=== PATIENT | male | born 1950 | race African-American/Black ===

== ENCOUNTER 2016-12-12 01:25 | Emergency (ER) | payer BC ==
--- NOTE | ~2016-12-12 | CR72 ---
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 [place], [place] [address] [id number] E MR#: [id number] Acc #: [id number] NAME: COCO BREWSTER : 1950 SEX: M STUDY DATE/TIME: 12/12/2016 1:13 UNIT: [facility] ROOM: STUDY DESCRIPTION: CR Chest Single View Portable Attending Physician: Abdiaziz Enriquez M.D. Ordering Physician: Chinedu Barrientos M.D. Primary Care Physician: Jann Lazo M.D. MEDICAL IMAGING REPORT This report is preliminary unless electronic signature is present EXAM Portable AP view of the chest COMPARISON CT chest dated July 02, 2016, 2 views of the chest on July 02, 2016. INDICATIONS 66-year-old male with chest pain for 2 hours. History of hypertension. FINDINGS No evidence of pneumothorax, pleural effusion or acute airspace disease. Cardiomediastinal silhouette is normal. Minimal multilevel thoracic spondylosis. IMPRESSION No acute radiographic abnormality. Dictated by... Daniel Calixto M.D. THIS IS AN ELECTRONICALLY VERIFIED REPORT Daniel Calixto M.D. at 12/12/2016 12:55 PM ESTHER/[place] TD: 12/12/2016 09:13 JOB #: [id number] MEDICAL IMAGING REPORT COPY
--- NOTE | ~2016-12-12 | EKG ---
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
[~2016-12-12 01:25] MED LIST: FLEXERIL10 MG PO; IBUPROFEN800 MG PO; MEDROL4 MG/DOSE- PO; VICODIN 5/1 TAB 5/50 PO; ZYRTEC PO
[2016-12-12 01:30] LABS: POC - CKMB 1.6 ng/mL (0.0-7.9); POC - TROPONIN <0.05 ng/mL (<=0.05)
[2016-12-12 02:03] LABS: EOSINOPHIL# 0.1 X10e3 (0-0.7); EOSINOPHIL% 1.5 % (0.0-7.0); HEMATOCRIT 41.9 % (38.0-50.0); HEMOGLOBIN 13.8 gm/dL (13.0-16.0); LYMPHOCYTE# 1.2 X10e3 (1.0-3.5); LYMPHOCYTE% 26.7 % (17.0-45.0); MEAN CELL VOLUME 97.1 FL (83-96); MEAN CORPUSCULAR HEMOGLOBIN 31.9 PG (28-34); MEAN CORPUSCULAR HGB CONC 32.9 g/dL (30-36); MEAN PLATELET VOLUME 8.5 FL (6.5-11.5); MONOCYTE# 0.7 X10e3 (0-1.0); MONOCYTE% 16.1 % (3.0-12.0); NEUTROPHIL# 2.4 X10e3 (1.5-7.1); NEUTROPHIL% 54.7 % (40-75); PLATELET COUNT 215 X10e3 (140-420); RED BLOOD COUNT 4.32 X10e (3.90-5.60); RED CELL DISTRIBUTION WIDTH 13.8 % (11.0-15.5); WHITE BLOOD COUNT 4.4 X10e3 (4.0-10.5)
[2016-12-12 02:04] LABS: DIFF IND NO
[2016-12-12 02:15] LABS: ALBUMIN SERUM 4.3 g/dL (3.5-5.0); ALKALINE PHOSPHATASE 50 U/L (32-92); ALT (SGPT) 22 U/L (10-40); AST (SGOT) 24 U/L (10-42); BILIRUBIN, DIRECT 0.1 mg/dL (0.0-0.2); BILIRUBIN,INDIRECT 0.8 mg/dL (0.0-0.9); BILIRUBIN,TOTAL 0.9 mg/dL (0.2-2.0); BLOOD UREA NITROGEN 16 mg/dL (9-23); BUN/CREATININE RATIO 17.77; CALCIUM SERUM 9.1 mg/dL (8.4-10.2); CARBON DIOXIDE 29 mmol/L (22-31); CHLORIDE 104 mmol/L (100-111); CREATININE SERUM 0.9 mg/dL (0.6-1.4); GLOM FILT RATE Estimated ABOVE60 mL/min (>60); GLUCOSE FASTING 105 mg/dL (70-110); POTASSIUM 3.7 mmol/L (3.5-5.1); PROTEIN TOTAL SERUM 7.5 g/dL (6.0-8.3); SODIUM 140 mmol/L (135-145)
[2016-12-12 02:54] LABS: POC - CKMB 2.9 ng/mL (0.0-7.9); POC - TROPONIN <0.05 ng/mL (<=0.05)
== END 2016-12-12 03:10 | disposition home or self-care (01) ==
LOC: CED 01:25
PROVIDERS: Emergency Medicine
DX: R07.9 Chest pain, unspecified (principal); I10 Essential (primary) hypertension; Z79.899 Other long term (current) drug therapy
CPT/HCPCS: 36415; 71010; 80048; 80076; 82553; 84484; 85025; 93005; 99284